=== PATIENT | male | born 1960 | race Caucasian/White ===

== ENCOUNTER 2021-09-04 10:22 | Outpatient (CLI) | payer MEDICARE | END 2021-09-04 10:23 | disposition home or self-care (01) | LOC: BICULT 10:22 | PROVIDERS: ATTEND Internal Medicine Gastroenterology | DX: K21.9 Gastro-esophageal reflux disease without esophagitis (principal); R14.0 Abdominal distension (gaseous); M54.2 Cervicalgia; K76.0 Fatty (change of) liver, not elsewhere classified | CPT/HCPCS: 76705 ==

== ENCOUNTER 2022-12-11 19:00 | Outpatient (CLI) | payer MEDICARE | END 2022-12-11 19:01 | disposition home or self-care (01) | LOC: SLEEPLAB 19:00 | PROVIDERS: ATTEND Otolaryngology Otolaryngic Allergy | DX: G47.33 Obstructive sleep apnea (adult) (pediatric) (principal) | CPT/HCPCS: 95810; 95977 ==